=== PATIENT | female | born 1935 | race Caucasian/White ===

== ENCOUNTER 2020-07-17 06:06 | Emergency (ER) | payer MEDICARE, OTHER ==
[~2020-07-17] VITALS: Ht 165.1 cm; Wt 72.6 kg
[~2020-07-17 06:06] MED LIST: AMIO200T33 PO; APIX5TAB PO; CELE200C PO; GABA100C9 PO; LISI-646 PO; LOVA40TA72 PO; META-167 PO; METO-158 PO; NITR-87 PO; OXYCODONE-ACETAMINOPHEN PO; ZOLP5TAB5 PO
[2020-07-17 11:15] VITALS: BP 176/105
[2020-07-17] MEDS ORDERED: METOPROLOL TARTRATE 50 MG TAB PO ONE (11:45)
== END 2020-07-17 12:36 | disposition home or self-care (01) ==
LOC: ER 06:06 → EDBD 06:06 → ER 12:36
DX: I48.91 Unspecified atrial fibrillation (principal); I11.0 Hypertensive heart disease with heart failure; I50.9 Heart failure, unspecified; Z87.891 Personal history of nicotine dependence
CPT/HCPCS: 70450; 71045; 72125; 74176; 93005

== ENCOUNTER 2021-03-03 14:59 | Inpatient (IN) | payer BC, MEDICARE ==
[~2021-03-03] VITALS: Ht 165.1 cm; Wt 75.5 kg
[~2021-03-03 14:59] MED LIST changes: -LISI-646 PO; +LISI20TA28 PO
[2021-03-03 15:57] LABS: Basophils # (auto) 0 10 ^3/uL (0-0.2); Basophils % (auto) 0.3 % (0.0-2.0); Eosinophils # (auto) 0 10 ^3/uL (0-0.8); Hematocrit 45.2 % (36.0-46.0); Hemoglobin 15.7 g/dL (12.2-16.2); Lymphocytes # (auto) 1.1 10 ^3/uL (0.4-5.4); Lymphocytes % (auto) 18.8 % (10.0-50.0); Mean Corpuscular Hemoglobin 32.4 pg (28.0-32.0); Mean Corpuscular Hgb Conc. 34.7 g/dL (32.0-36.0); Mean Corpuscular Volume 93.3 fL (80.0-100.0); Monocytes # (auto) 0.7 10 ^3/uL (0-1.3); Monocytes % (auto) 11.9 % (0.0-12.0); Neutrophils # (auto) 3.9 10 ^3/uL (1.6-8.6); Red Blood Cells 4.84 10^6/uL (4.0-5.20); Red Cell Distribution Width 14.7 % (11.8-14.3); White Blood Cell 5.7 10^3/uL (4.4-10.8)
[2021-03-03 16:14] LABS: Albumin 3.9 g/dL (3.4-5.0); Anion Gap 9 (5-15); BUN/Creatinine Ratio 16.2; Blood Alcohol < 3.0 mg/dL (0-5); Blood Urea Nitrogen 11 mg/dL (7-18); Calcium 9.4 mg/dL (8.5-10.1); Carbon Dioxide 24 mmol/L (21-32); Chloride 105 mmol/L (98-107); GFR African American 106 mL/min; GFR Non-African American 88 mL/min; Glucose 108 mg/dL (74-106); Magnesium 1.7 mg/dL (1.6-2.6); Potassium 3.8 mmol/L (3.5-5.1); Sodium 138 mmol/L (136-145)
[2021-03-03 16:19] LABS: Alanine Aminotransferase 17 U/L (13-56); Alkaline Phosphatase 79 U/L (45-117); Aspartate Aminotransferase 18 U/L (15-37); Bilirubin, Total 1.6 mg/dL (0.2-1.0); Total Protein 7.9 g/dL (6.4-8.2)
[2021-03-03 16:23] LABS: INR 1.16 (0.9-1.15); Partial Thromboplastin Time 31.3 sec (23.0-31.2)
[2021-03-03] MEDS ORDERED: ACETAMINOPHEN 325 MG TAB PO ONE (20:15)
[2021-03-03 21:00] LABS: Urine Bacteria NONE SEEN /hpf (None Seen); Urine Blood TRACE /uL (Negative); Urine Hyaline Cast FEW /lpf (0 - 2); Urine Mucus FEW (None Seen); Urine Specific Gravity 1.023 (1.001-1.035); Urine WBC 1 /hpf (0 - 5)
[2021-03-03] MEDS ORDERED: NITROGLYCERIN 0.4 MG SL TAB SL PRN (21:00)
[2021-03-03] MEDS ORDERED: MORPHINE SULF INJ 2 MG/ML SYRINGE 1ML IV PRN (21:00)
[2021-03-03] MEDS ORDERED: ONDANSETRON HCL 4 MG/2 ML VIAL IV PRN (21:00)
[2021-03-03] MEDS: FAMOTIDINE 20 MG TAB PO SCH (22:00)
[2021-03-03] MEDS: ATORVASTATIN 20 MG TAB PO SCH (22:00)
[2021-03-03] MEDS: METOPROLOL TARTRATE 50 MG TAB PO SCH (22:00)
[2021-03-04 02:00] VITALS: BP 147/83
[2021-03-04 04:57] VITALS: BP 140/78
[2021-03-04] MEDS: ACETAMINOPHEN 325 MG TAB PO PRN (05:34)
[2021-03-04 09:00] VITALS: BP 167/92
[2021-03-04] MEDS ORDERED: ASPirin 81 mg TAB PO SCH (10:00)
[2021-03-04] MEDS: FAMOTIDINE 20 MG TAB PO SCH (10:11)
[2021-03-04] MEDS: AMIODARONE HCL 200 MG TAB PO SCH (10:12)
[2021-03-04] MEDS: METOPROLOL TARTRATE 50 MG TAB PO SCH ×2 (10:14→21:23)
[2021-03-04] MEDS: LISINOPRIL 20 MG TAB PO SCH (10:14)
[2021-03-04] MEDS ORDERED: hydrALAZINE HCL 20 MG/ML VL IV PRN (12:15)
[2021-03-04 13:00] VITALS: BP 157/83
[2021-03-04] MEDS: APIXABAN 5 MG TAB PO SCH ×2 (13:09→21:23)
[2021-03-04 13:44] LABS: Basophils # (auto) 0 10 ^3/uL (0-0.2); Basophils % (auto) 0.2 % (0.0-2.0); Eosinophils # (auto) 0 10 ^3/uL (0-0.8); Hematocrit 46.8 % (36.0-46.0); Hemoglobin 15.9 g/dL (12.2-16.2); Lymphocytes % (auto) 15.5 % (10.0-50.0); Mean Corpuscular Hemoglobin 31.9 pg (28.0-32.0); Mean Corpuscular Hgb Conc. 33.9 g/dL (32.0-36.0); Monocytes # (auto) 0.7 10 ^3/uL (0-1.3); Monocytes % (auto) 11.3 % (0.0-12.0); Neutrophils # (auto) 4.7 10 ^3/uL (1.6-8.6); Nucleated Red Blood Cells % 0.1 %; Red Blood Cells 4.98 10^6/uL (4.0-5.20); Red Cell Distribution Width 14.7 % (11.8-14.3); White Blood Cell 6.4 10^3/uL (4.4-10.8)
[2021-03-04 14:10] LABS: BUN/Creatinine Ratio 18.6; Calcium 9.3 mg/dL (8.5-10.1); Potassium 3.8 mmol/L (3.5-5.1)
[2021-03-04] MEDS ORDERED: MAGNESIUM SULFATE 1GM/100ML 100 ML IV ONE (14:30)
[2021-03-04] MEDS: ATORVASTATIN 20 MG TAB PO SCH (21:22)
[2021-03-04 22:00] VITALS: BP 151/95
[2021-03-05 09:48] VITALS: BP 103/63
[2021-03-05] MEDS: LISINOPRIL 20 MG TAB PO SCH (10:00)
[2021-03-05] MEDS: METOPROLOL TARTRATE 50 MG TAB PO SCH ×2 (10:00→21:57)
[2021-03-05] MEDS: AMIODARONE HCL 200 MG TAB PO SCH (10:00)
[2021-03-05] MEDS: FAMOTIDINE 20 MG TAB PO SCH (10:00)
[2021-03-05] MEDS: APIXABAN 5 MG TAB PO SCH ×2 (10:00→21:56)
[2021-03-05 12:01] VITALS: BP 134/69
[2021-03-05 16:45] VITALS: BP 138/73
[2021-03-05 21:21] LABS: Basophils # (auto) 0 10 ^3/uL (0-0.2); Basophils % (auto) 0.3 % (0.0-2.0); Eosinophils # (auto) 0 10 ^3/uL (0-0.8); Hematocrit 48.5 % (36.0-46.0); Hemoglobin 16.9 g/dL (12.2-16.2); Lymphocytes # (auto) 1.2 10 ^3/uL (0.4-5.4); Lymphocytes % (auto) 14.6 % (10.0-50.0); Mean Corpuscular Hemoglobin 32.3 pg (28.0-32.0); Mean Corpuscular Hgb Conc. 34.8 g/dL (32.0-36.0); Mean Corpuscular Volume 92.9 fL (80.0-100.0); Monocytes # (auto) 1.1 10 ^3/uL (0-1.3); Monocytes % (auto) 13.8 % (0.0-12.0); Neutrophils # (auto) 5.9 10 ^3/uL (1.6-8.6); Neutrophils % (auto) 71.3 % (37.0-80.0); Nucleated Red Blood Cells % 0.2 %; Red Blood Cells 5.22 10^6/uL (4.0-5.20); Red Cell Distribution Width 14.6 % (11.8-14.3); White Blood Cell 8.3 10^3/uL (4.4-10.8)
[2021-03-05 21:44] LABS: Albumin 3.8 g/dL (3.4-5.0); Calcium 9.4 mg/dL (8.5-10.1); Magnesium 2.3 mg/dL (1.6-2.6); Potassium 3.9 mmol/L (3.5-5.1)
[2021-03-05 21:47] LABS: BUN/Creatinine Ratio 22.7; Bilirubin, Total 1.8 mg/dL (0.2-1.0); Total Protein 8.2 g/dL (6.4-8.2)
[2021-03-05] MEDS: ATORVASTATIN 20 MG TAB PO SCH (21:57)
[2021-03-05] MEDS: LORazepam 0.5 MG TAB PO PRN (21:59)
[2021-03-05 22:00] VITALS: BP 133/70
[2021-03-06 05:00] VITALS: BP 147/69
[2021-03-06 09:00] VITALS: BP 128/85
[2021-03-06] MEDS: FAMOTIDINE 20 MG TAB PO SCH (10:40)
[2021-03-06] MEDS: APIXABAN 5 MG TAB PO SCH ×2 (10:40→23:01)
[2021-03-06] MEDS: AMIODARONE HCL 200 MG TAB PO SCH (10:40)
[2021-03-06] MEDS: METOPROLOL TARTRATE 50 MG TAB PO SCH ×2 (10:41→22:00)
[2021-03-06] MEDS: LISINOPRIL 20 MG TAB PO SCH (10:41)
[2021-03-06 10:58] LABS: Basophils # (auto) 0 10 ^3/uL (0-0.2); Basophils % (auto) 0.4 % (0.0-2.0); Eosinophils # (auto) 0 10 ^3/uL (0-0.8); Hematocrit 47.9 % (36.0-46.0); Hemoglobin 16.7 g/dL (12.2-16.2); Lymphocytes % (auto) 13.8 % (10.0-50.0); Mean Corpuscular Hemoglobin 32.4 pg (28.0-32.0); Mean Corpuscular Hgb Conc. 34.8 g/dL (32.0-36.0); Monocytes % (auto) 12.7 % (0.0-12.0); Neutrophils # (auto) 5.5 10 ^3/uL (1.6-8.6); Neutrophils % (auto) 73.1 % (37.0-80.0); Nucleated Red Blood Cells % 0.1 %; Red Blood Cells 5.15 10^6/uL (4.0-5.20); Red Cell Distribution Width 14.5 % (11.8-14.3); White Blood Cell 7.5 10^3/uL (4.4-10.8)
[2021-03-06 11:28] LABS: Potassium 3.6 mmol/L (3.5-5.1)
[2021-03-06 11:34] LABS: Albumin 3.7 g/dL (3.4-5.0); BUN/Creatinine Ratio 24.3; Bilirubin, Total 1.8 mg/dL (0.2-1.0); Calcium 9.3 mg/dL (8.5-10.1); Magnesium 2.1 mg/dL (1.6-2.6); Total Protein 8.2 g/dL (6.4-8.2)
[2021-03-06 13:00] VITALS: BP_SYST 131; BP_SYST 133; BP_DIAS 76; BP_DIAS 80
[2021-03-06 22:00] VITALS: BP 96/59
[2021-03-06] MEDS: ATORVASTATIN 20 MG TAB PO SCH (23:01)
[2021-03-07] MEDS: LORazepam 0.5 MG TAB PO PRN (01:55)
[2021-03-07 05:00] VITALS: BP 131/76
[2021-03-07] MEDS: AMIODARONE HCL 200 MG TAB PO SCH (11:03)
[2021-03-07] MEDS: APIXABAN 5 MG TAB PO SCH ×2 (11:03→21:08)
[2021-03-07] MEDS: FAMOTIDINE 20 MG TAB PO SCH (11:04)
[2021-03-07 11:08] VITALS: BP 120/64
[2021-03-07] MEDS: LISINOPRIL 20 MG TAB PO SCH (12:27)
[2021-03-07] MEDS: METOPROLOL TARTRATE 50 MG TAB PO SCH ×2 (12:27→21:09)
[2021-03-07 17:00] VITALS: BP 120/81
[2021-03-07] MEDS: ATORVASTATIN 20 MG TAB PO SCH (21:08)
[2021-03-08 05:00] VITALS: BP 125/78
[2021-03-08] MEDS: ACETAMINOPHEN 325 MG TAB PO PRN ×2 (06:32→15:50)
[2021-03-08 08:19] VITALS: BP 133/76
[2021-03-08] MEDS: APIXABAN 5 MG TAB PO SCH ×2 (09:34→20:44)
[2021-03-08] MEDS: METOPROLOL TARTRATE 50 MG TAB PO SCH ×2 (09:34→20:45)
[2021-03-08] MEDS: AMIODARONE HCL 200 MG TAB PO SCH (09:34)
[2021-03-08] MEDS: LISINOPRIL 20 MG TAB PO SCH (09:34)
[2021-03-08] MEDS: FAMOTIDINE 20 MG TAB PO SCH (09:34)
[2021-03-08 11:55] LABS: Folate (Folic Acid) 14.08 ng/mL (5.38-24)
[2021-03-08 12:42] VITALS: BP 120/74
[2021-03-08 17:11] VITALS: BP 118/76
[2021-03-08] MEDS: SODIUM CHLORIDE 0.9% 1,000 ML IV SCH (19:16)
[2021-03-08] MEDS: ATORVASTATIN 20 MG TAB PO SCH (20:44)
[2021-03-08] MEDS: LORazepam 0.5 MG TAB PO PRN (20:45)
[2021-03-08 22:00] VITALS: BP 125/74
[2021-03-09] MEDS: SODIUM CHLORIDE 0.9% 1,000 ML IV SCH (04:50)
[2021-03-09] MEDS ORDERED: LORazepam 2MG/ML-1ML VIAL IV ONE (08:15)
[2021-03-09 08:33] VITALS: BP 148/82
[2021-03-09] MEDS ORDERED: IOHEXOL 350 MG/ML 100ML IJ ONE ×3 (10:02→16:46)
[2021-03-09] MEDS: AMIODARONE HCL 200 MG TAB PO SCH (11:29)
[2021-03-09] MEDS: APIXABAN 5 MG TAB PO SCH ×2 (11:29→20:55)
[2021-03-09] MEDS: FAMOTIDINE 20 MG TAB PO SCH (11:30)
[2021-03-09] MEDS: METOPROLOL TARTRATE 50 MG TAB PO SCH ×2 (11:30→20:56)
[2021-03-09] MEDS: LISINOPRIL 20 MG TAB PO SCH (11:31)
[2021-03-09 13:00] VITALS: BP 148/69
[2021-03-09] MEDS ORDERED: SODIUM CHLORIDE 0.9% 1,000 ML IV SCH (14:45)
[2021-03-09 16:56] VITALS: BP 128/79
[2021-03-09] MEDS: ATORVASTATIN 20 MG TAB PO SCH (20:55)
[2021-03-09] MEDS: LORazepam 0.5 MG TAB PO PRN (20:56)
[2021-03-09] MEDS ORDERED: CYANOCOBALAMIN (B-12) 1000 MCG/1 ML VIAL IM ONE (21:30)
[2021-03-09 22:00] VITALS: BP 121/65
[2021-03-10 05:35] LABS: Basophils # (auto) 0 10 ^3/uL (0-0.2); Basophils % (auto) 0.2 % (0.0-2.0); Eosinophils # (auto) 0 10 ^3/uL (0-0.8); Hematocrit 46.6 % (36.0-46.0); Hemoglobin 15.6 g/dL (12.2-16.2); Lymphocytes # (auto) 1.3 10 ^3/uL (0.4-5.4); Lymphocytes % (auto) 18.4 % (10.0-50.0); Mean Corpuscular Hemoglobin 31.2 pg (28.0-32.0); Mean Corpuscular Hgb Conc. 33.5 g/dL (32.0-36.0); Mean Corpuscular Volume 93.2 fL (80.0-100.0); Monocytes % (auto) 13.3 % (0.0-12.0); Neutrophils # (auto) 4.9 10 ^3/uL (1.6-8.6); Neutrophils % (auto) 68.1 % (37.0-80.0); Nucleated Red Blood Cells % 0.1 %; Red Cell Distribution Width 14.4 % (11.8-14.3); White Blood Cell 7.2 10^3/uL (4.4-10.8)
[2021-03-10 06:00] LABS: INR 1.27 (0.9-1.15); Partial Thromboplastin Time 36.4 sec (23.0-31.2)
[2021-03-10 06:23] LABS: Potassium 4.5 mmol/L (3.5-5.1)
[2021-03-10 06:38] LABS: BUN/Creatinine Ratio 27.3; Calcium 9.3 mg/dL (8.5-10.1)
[2021-03-10 09:00] VITALS: BP 146/72
[2021-03-10] MEDS ORDERED: ALPRAZolam 0.5 MG TAB PO ONE (09:45)
[2021-03-10] MEDS ORDERED: CYANOCOBALAMIN 500 MCG TAB PO SCH (10:00)
[2021-03-10] MEDS ORDERED: fentaNYL CITRATE 100 MCG/2 ML VL IV ONE (10:15)
[2021-03-10] MEDS ORDERED: LIDOCAINE VISCOUS 2% 15ML UD PO ONE (10:15)
[2021-03-10] MEDS ORDERED: diphenhdrAMINE HCL 50 MG/1 ML VL IV ONE (10:15)
[2021-03-10] MEDS ORDERED: MIDAZOLAM HCL 1MG/1ML-2 ML VIAL IV ONE (10:15)
[2021-03-10 13:00] VITALS: BP 118/72
[2021-03-10] MEDS ORDERED: HYDROcodone-ACET 5/325MG TAB PO PRN (14:30)
[2021-03-10] MEDS: AMIODARONE HCL 200 MG TAB PO SCH (14:38)
[2021-03-10] MEDS: LISINOPRIL 20 MG TAB PO SCH (14:39)
[2021-03-10] MEDS: APIXABAN 5 MG TAB PO SCH (14:39)
[2021-03-10] MEDS: FAMOTIDINE 20 MG TAB PO SCH (14:39)
[2021-03-10] MEDS: METOPROLOL TARTRATE 50 MG TAB PO SCH (14:42)
[2021-03-10 17:00] VITALS: BP 111/61
[2021-03-10 18:05] VITALS: BP 129/88
== END 2021-03-10 19:46 | disposition home health service (06) | DRG 64 ==
LOC: ER 14:59 → EDBD 14:59 → TELE 20:47 → TELE-WESTW 23:45
PROVIDERS: ADMIT Nurse Practitioner; ATTEND Internal Medicine
PROC: 05HC33Z Insertion of Infusion Device into Left Basilic Vein, Percutaneous Approach (ICD-10-PCS; principal; 2021-03-09)
PROC: B54NZZA Ultrasonography of Left Upper Extremity Veins, Guidance (ICD-10-PCS; 2021-03-09)
PROC: B24BZZ4 Ultrasonography of Heart with Aorta, Transesophageal (ICD-10-PCS; 2021-03-10)
DX: I63.40 Cerebral infarction due to embolism of unspecified cerebral artery (principal); I21.A1 Myocardial infarction type 2; G93.41 Metabolic encephalopathy; I50.43 Acute on chronic combined systolic (congestive) and diastolic (congestive) heart failure; D68.9 Coagulation defect, unspecified; G40.209 Localization-related (focal) (partial) symptomatic epilepsy and epileptic syndromes with complex partial seizures, not intractable, without status epilepticus; I48.0 Paroxysmal atrial fibrillation; E03.9 Hypothyroidism, unspecified; E78.5 Hyperlipidemia, unspecified; G89.29 Other chronic pain; Z20.822 Contact with and (suspected) exposure to COVID-19; I11.0 Hypertensive heart disease with heart failure; I25.10 Atherosclerotic heart disease of native coronary artery without angina pectoris; M19.90 Unspecified osteoarthritis, unspecified site; Z79.899 Other long term (current) drug therapy; Z82.49 Family history of ischemic heart disease and other diseases of the circulatory system; Z83.3 Family history of diabetes mellitus; Z95.0 Presence of cardiac pacemaker; Z98.1 Arthrodesis status
CPT/HCPCS: 36415; 70450; 70496; 70551; 71045; 80048; 80053; 80061; 80320; 81001; 82607; 82746; 83735; 83880; 84443; 84484; 85025; 85049; 85610; 85730; 87426; 93005; 93306; 93312; 93886; 97110; 97116; 97163; 97530; 99152; G0378; J2250

== ENCOUNTER 2022-09-25 15:06 | Inpatient (IN) | payer MEDICARE ==
[~2022-09-25] VITALS: Ht 162.6 cm; Wt 67.5 kg
[2022-09-25] MEDS ORDERED: SODIUM CHLORIDE 0.9% 500 ML IVB ONE (15:30)
[2022-09-25 15:57] LABS: Basophils # (auto) 0 10 ^3/uL (0-0.2); Basophils % (auto) 0.6 % (0.0-2.0); Eosinophils # (auto) 0 10 ^3/uL (0-0.8); Eosinophils % (auto) 0.1 % (0.0-7.0); Hematocrit 45.7 % (36.0-46.0); Hemoglobin 14.9 g/dL (12.2-16.2); Lymphocytes # (auto) 0.5 10 ^3/uL (0.4-5.4); Mean Corpuscular Hemoglobin 31.1 pg (28.0-32.0); Mean Corpuscular Hgb Conc. 32.6 g/dL (32.0-36.0); Mean Corpuscular Volume 95.5 fL (80.0-100.0); Monocytes # (auto) 0.5 10 ^3/uL (0-1.3); Monocytes % (auto) 8.7 % (0.0-12.0); Neutrophils % (auto) 82.6 % (37.0-80.0); Nucleated Red Blood Cells % 0.2 %; Red Blood Cells 4.79 10^6/uL (4.0-5.20); White Blood Cell 6.1 10^3/uL (4.4-10.8)
[2022-09-25 16:12] LABS: Alanine Aminotransferase 31 U/L (13-56); Albumin 2.7 g/dL (3.4-5.0); Anion Gap 11 (5-15); Aspartate Aminotransferase 97 U/L (15-37); Blood Urea Nitrogen 17 mg/dL (7-18); Calcium 9.4 mg/dL (8.5-10.1); Carbon Dioxide 22 mmol/L (21-32); Chloride 103 mmol/L (98-107); GFR African American 63 mL/min; GFR Non-African American 52 mL/min; Glucose 103 mg/dL (74-106); Magnesium 2.2 mg/dL (1.6-2.6); Potassium 4.8 mmol/L (3.5-5.1); Sodium 136 mmol/L (136-145)
[2022-09-25 16:15] LABS: Alkaline Phosphatase 303 U/L (45-117); Bilirubin, Total 1.6 mg/dL (0.2-1.0); Total Protein 6.6 g/dL (6.4-8.2)
[2022-09-25 16:30] LABS: Lactic Acid w/Reflex 2.1 mmol/L (0.4-2.0)
[2022-09-25] MEDS ORDERED: dilTIAZem 25 MG/5 ML VIAL IV ONE (18:15)
[2022-09-25] MEDS ORDERED: MORPHINE SULFATE INJ 2 MG/ml SYRG IV PRN (18:30)
[2022-09-25] MEDS ORDERED: NITROGLYCERIN 0.4 MG SL TAB SL PRN (18:30)
[2022-09-25] MEDS: D5W/SOD CHLO 0.9% 1,000 ML IV SCH (18:52)
[2022-09-25] MEDS: METOPROLOL TARTRATE 1MG/1ML-5ML VIAL IV SCH (18:52)
[2022-09-25 19:22] LABS: Urine Bacteria MANY /hpf (None Seen); Urine Blood TRACE /uL (Negative); Urine Hyaline Cast MOD /lpf (0 - 2); Urine Mucus MODERATE (None Seen); Urine Specific Gravity 1.024 (1.001-1.035); Urine WBC 6 /hpf (0 - 5)
[2022-09-25 20:39] LABS: Alcohol, Urine < 3.0 mg/dL (0-10); Amphetamine Screen, Urine NEGATIVE (NEGATIVE); Barbiturate Scree,Urine NEGATIVE (NEGATIVE); Benzodiazephine Screen, Urine NEGATIVE (NEGATIVE); Cocaine Screen, Urine NEGATIVE (NEGATIVE)
[2022-09-25 20:48] LABS: Cannabinoid Screen, Urine NEGATIVE (NEGATIVE); Opiate Scree,Urine POSITIVE (NEGATIVE); Phencyclidine Screen, Urine NEGATIVE (NEGATIVE)
[2022-09-25] MEDS: ENOXAPARIN SOD 100 MG/1 ML SYRINGE SC SCH (22:43)
[2022-09-26] MEDS: METOPROLOL TARTRATE 1MG/1ML-5ML VIAL IV SCH ×3 (06:00→12:14)
[2022-09-26] MEDS: D5W/SOD CHLO 0.9% 1,000 ML IV SCH ×2 (07:59→21:10)
[2022-09-26] MEDS: PANTOPRAZOLE 40 MG/10 ML VIAL INJ IV SCH (08:41)
[2022-09-26] MEDS: ENOXAPARIN SOD 100 MG/1 ML SYRINGE SC SCH (08:41)
[2022-09-26] MEDS: cefTRIAXone 1GM/50ML D5W 50 ML IV SCH (14:30)
[2022-09-26] MEDS ORDERED: ZOLPIDEM TARTRATE 5 MG TAB PO PRN (19:15)
[2022-09-26] MEDS: ENOXAPARIN SOD 60 MG/0.6 ML SYRINGE SC SCH (23:18)
[2022-09-27 07:09] LABS: Alanine Aminotransferase 29 U/L (13-56); Albumin 2.3 g/dL (3.4-5.0); Anion Gap 9 (5-15); Aspartate Aminotransferase 92 U/L (15-37); BUN/Creatinine Ratio 21.3; Blood Urea Nitrogen 13 mg/dL (7-18); Carbon Dioxide 21 mmol/L (21-32); Chloride 109 mmol/L (98-107); GFR African American 120 mL/min; GFR Non-African American 99 mL/min; Glucose 69 mg/dL (74-106); Potassium 4.1 mmol/L (3.5-5.1); Sodium 139 mmol/L (136-145)
[2022-09-27 07:12] LABS: Alkaline Phosphatase 270 U/L (45-117); Bilirubin, Total 1.6 mg/dL (0.2-1.0); Total Protein 6.1 g/dL (6.4-8.2)
[2022-09-27 07:25] LABS: INR 1.36 (0.9-1.15); Partial Thromboplastin Time 46.5 sec (24.6-33.4)
[2022-09-27 08:17] LABS: Basophils # (auto) 0 10 ^3/uL (0-0.2); Basophils % (auto) 0.5 % (0.0-2.0); Eosinophils # (auto) 0 10 ^3/uL (0-0.8); Eosinophils % (auto) 0.6 % (0.0-7.0); Hematocrit 49.6 % (36.0-46.0); Hemoglobin 15.1 g/dL (12.2-16.2); Lymphocytes # (auto) 0.5 10 ^3/uL (0.4-5.4); Lymphocytes % (auto) 7.5 % (10.0-50.0); Mean Corpuscular Hemoglobin 30.4 pg (28.0-32.0); Mean Corpuscular Hgb Conc. 30.5 g/dL (32.0-36.0); Mean Corpuscular Volume 99.7 fL (80.0-100.0); Monocytes # (auto) 0.7 10 ^3/uL (0-1.3); Monocytes % (auto) 10.1 % (0.0-12.0); Neutrophils # (auto) 5.6 10 ^3/uL (1.6-8.6); Neutrophils % (auto) 81.3 % (37.0-80.0); Nucleated Red Blood Cells % 0.2 %; Red Blood Cells 4.98 10^6/uL (4.0-5.20)
[2022-09-27] MEDS: PANTOPRAZOLE 40 MG/10 ML VIAL INJ IV SCH (09:46)
[2022-09-27] MEDS: cefTRIAXone 1GM/50ML D5W 50 ML IV SCH (09:47)
[2022-09-27] MEDS: ONDANSETRON HCL 4 MG/2 ML VIAL IV PRN ×2 (09:47→16:12)
[2022-09-27] MEDS: AMIODARONE HCL 200 MG TAB PO SCH (09:47)
[2022-09-27] MEDS: ENOXAPARIN SOD 60 MG/0.6 ML SYRINGE SC SCH ×2 (09:47→21:49)
[2022-09-27] MEDS: MORPHINE SULFATE INJ 2 MG/ml SYRG IV PRN ×2 (09:48→16:27)
[2022-09-27] MEDS: D5W/SOD CHLO 0.9% 1,000 ML IV SCH ×2 (10:30→23:50)
[2022-09-28] MEDS: ONDANSETRON HCL 4 MG/2 ML VIAL IV PRN ×3 (04:40→22:21)
[2022-09-28] MEDS: MORPHINE SULFATE INJ 2 MG/ml SYRG IV PRN ×2 (04:40→18:12)
[2022-09-28 05:00] VITALS: BP 135/81
[2022-09-28] MEDS ORDERED: METOPROLOL TARTRATE 1MG/1ML-5ML VIAL IV ONE (07:30)
[2022-09-28] MEDS: PANTOPRAZOLE 40 MG/10 ML VIAL INJ IV SCH (08:12)
[2022-09-28] MEDS: cefTRIAXone 1GM/50ML D5W 50 ML IV SCH (08:12)
[2022-09-28 09:00] VITALS: BP 110/89
[2022-09-28] MEDS: ENOXAPARIN SOD 60 MG/0.6 ML SYRINGE SC SCH ×2 (09:09→22:20)
[2022-09-28] MEDS: AMIODARONE HCL 200 MG TAB PO SCH ×2 (09:09→22:20)
[2022-09-28] MEDS ORDERED: AMIODARONE HCL 200 MG TAB PO ONE (10:15)
[2022-09-28] MEDS ORDERED: METOPROLOL TARTRATE 50 MG TAB PO ONE (10:15)
[2022-09-28] MEDS ORDERED: METOPROLOL TARTRATE 1MG/1ML-5ML VIAL IV SCH (12:00)
[2022-09-28 13:00] VITALS: BP 139/92
[2022-09-28] MEDS: D5W/SOD CHLO 0.9% 1,000 ML IV SCH (13:39)
[2022-09-28 17:10] VITALS: BP 130/61
[2022-09-28 22:00] VITALS: BP 139/85
[2022-09-28] MEDS: METOPROLOL TARTRATE 25 MG TAB PO SCH (22:20)
[2022-09-29] MEDS: MORPHINE SULFATE INJ 2 MG/ml SYRG IV PRN ×2 (01:33→05:56)
[2022-09-29] MEDS: D5W/SOD CHLO 0.9% 1,000 ML IV SCH ×2 (02:30→04:18)
[2022-09-29 04:44] VITALS: BP 140/80
[2022-09-29] MEDS: ONDANSETRON HCL 4 MG/2 ML VIAL IV PRN (05:57)
[2022-09-29 08:59] VITALS: BP 130/73
[2022-09-29] MEDS: cefTRIAXone 1GM/50ML D5W 50 ML IV SCH (09:49)
[2022-09-29] MEDS: PANTOPRAZOLE 40 MG/10 ML VIAL INJ IV SCH (09:49)
[2022-09-29] MEDS: METOPROLOL TARTRATE 25 MG TAB PO SCH ×2 (09:50→10:08)
[2022-09-29] MEDS: ENOXAPARIN SOD 60 MG/0.6 ML SYRINGE SC SCH (09:50)
[2022-09-29] MEDS: AMIODARONE HCL 200 MG TAB PO SCH (09:50)
[2022-09-29 13:00] VITALS: BP 142/77
[2022-09-29 14:01] VITALS: BP 130/73
[2022-09-29 17:00] VITALS: BP 119/67
== END 2022-09-29 17:25 | disposition hospice, home (50) | DRG 436 ==
LOC: ER 15:06 → EDBD 15:06 → TELE 18:26 → TELE-CENTR 09-27 21:15 → TELE-EAST 09-28 15:50
PROVIDERS: ADMIT Nurse Practitioner Acute Care; ATTEND Internal Medicine
PROC: 05HC33Z Insertion of Infusion Device into Left Basilic Vein, Percutaneous Approach (ICD-10-PCS; principal; 2022-09-28)
PROC: B54NZZA Ultrasonography of Left Upper Extremity Veins, Guidance (ICD-10-PCS; 2022-09-28)
DX: C78.7 Secondary malignant neoplasm of liver and intrahepatic bile duct (principal); C15.9 Malignant neoplasm of esophagus, unspecified; N39.0 Urinary tract infection, site not specified; C78.00 Secondary malignant neoplasm of unspecified lung; I13.0 Hypertensive heart and chronic kidney disease with heart failure and stage 1 through stage 4 chronic kidney disease, or unspecified chronic kidney disease; D68.69 Other thrombophilia; I50.32 Chronic diastolic (congestive) heart failure; E44.0 Moderate protein-calorie malnutrition; E78.5 Hyperlipidemia, unspecified; Z20.822 Contact with and (suspected) exposure to COVID-19; Z66 Do not resuscitate; I25.10 Atherosclerotic heart disease of native coronary artery without angina pectoris; D69.6 Thrombocytopenia, unspecified; Z51.5 Encounter for palliative care; R13.10 Dysphagia, unspecified; I05.0 Rheumatic mitral stenosis; I48.91 Unspecified atrial fibrillation; N18.31 Chronic kidney disease, stage 3a; Z86.73 Personal history of transient ischemic attack (TIA), and cerebral infarction without residual deficits; Z92.21 Personal history of antineoplastic chemotherapy; Z95.2 Presence of prosthetic heart valve; Z95.810 Presence of automatic (implantable) cardiac defibrillator; Z92.3 Personal history of irradiation; Z83.3 Family history of diabetes mellitus; Z79.899 Other long term (current) drug therapy; Z85.01 Personal history of malignant neoplasm of esophagus; Z68.25 Body mass index [BMI] 25.0-25.9, adult
CPT/HCPCS: 36415; 70450; 71045; 71250; 74176; 80053; 80307; 81001; 83605; 83735; 84443; 84484; 85025; 85610; 85730; 87040; 87426; 92610; 93005; 93306; 96361; 96374; C9113; G0378; J0696; J2405; J7042